=== PATIENT | female | born 1965 | race Caucasian/White ===

== ENCOUNTER 2021-10-04 07:50 | Inpatient (IN) | payer MEDICARE, OTHER ==
[~2021-10-04] VITALS: Ht 157.5 cm; Wt 48.5 kg
[~2021-10-04 07:50] MED LIST: SPIRIVA18 MCG INH
[2021-10-04] MEDS ORDERED: ASPIRIN81 MG PO (09:02)
[2021-10-04] MEDS ORDERED: BUTALB-ACETAMI1 EAC1 PO (09:02)
[2021-10-04] MEDS ORDERED: ATROVENT-HFA12.9 GM INH (09:03)
[2021-10-04] MEDS ORDERED: FAMOTIDINE20 MG PO (09:03)
[2021-10-04] MEDS ORDERED: LEVETIRACETAM500 MG PO (09:04)
[2021-10-04] MEDS ORDERED: FLOVENT 220.1 GM/INH INH (09:04)
[2021-10-04] MEDS ORDERED: MONTELUKAST SOD10 MG PO (09:05)
[2021-10-04] MEDS ORDERED: OMEPRAZOLE20 MG PO (09:05)
[2021-10-04 09:16] LABS: HEMOGLOBIN 12.7 gm/dl (12.3-15.3); RED BLOOD COUNT 4.32 M/UL (4.00-5.10); WHITE BLOOD COUNT 5.9 K/UL (4.5-11.0)
[2021-10-04 09:40] LABS: BUN/CREATININE RATIO 12 (0-10)
[2021-10-04] MEDS ORDERED: CYCLOBENZAPRINE10 MG PO (13:17)
[2021-10-04] MEDS ORDERED: ZOFRAN 4 MG TAB4 MG PO (13:17)
[2021-10-04] MEDS ORDERED: HYDROCODON-ACE1 EAC6 PO (13:17)
[2021-10-04] MEDS ORDERED: ASPIRIN EC81 MG PO (13:17)
[2021-10-04] MEDS ORDERED: PROAIR HFA8.5 GM INH (17:21)
[2021-10-04] MEDS ORDERED: CRESTOR10 MG PO (17:23)
[2021-10-05 07:05] LABS: HEMOGLOBIN 11.5 gm/dl (12.3-15.3); RED BLOOD COUNT 3.99 M/UL (4.00-5.10)
[2021-10-05 07:06] LABS: WHITE BLOOD COUNT 11.6 K/UL (4.5-11.0)
[2021-10-05 07:23] LABS: BUN/CREATININE RATIO 11 (0-10)
[2021-10-06 06:54] LABS: HEMOGLOBIN 10.2 gm/dl (12.3-15.3)
[2021-10-06 06:55] LABS: RED BLOOD COUNT 3.58 M/UL (4.00-5.10); WHITE BLOOD COUNT 8.2 K/UL (4.5-11.0)
[2021-10-06 07:50] LABS: BUN/CREATININE RATIO 11 (0-10)
[2021-10-07 07:48] LABS: HEMOGLOBIN 9.9 gm/dl (12.3-15.3); RED BLOOD COUNT 3.53 M/UL (4.00-5.10); WHITE BLOOD COUNT 6.8 K/UL (4.5-11.0)
[2021-10-07 08:31] LABS: BUN/CREATININE RATIO 9 (0-10)
[2021-10-08 06:40] LABS: HEMOGLOBIN 9.8 gm/dl (12.3-15.3); RED BLOOD COUNT 3.5 M/UL (4.00-5.10); WHITE BLOOD COUNT 5.9 K/UL (4.5-11.0)
[2021-10-08 07:11] LABS: BUN/CREATININE RATIO 7 (0-10)
[2021-10-08] MEDS ORDERED: OMNICEF 300 MG300 MG PO (09:03)
[2021-10-08] MEDS ORDERED: DOXYCYCLINE HY100 M2 PO (09:03)
[2021-10-08] MEDS ORDERED: MEDROL DOSEPAK 24 MG PO (09:03)
[2021-10-08] MEDS ORDERED: CARVEDILOL3.125 MG PO (09:03)
== END 2021-10-08 14:23 | disposition home or self-care (01) | DRG 493 ==
LOC: OR 07:50 → M/S 16:42 → OR 16:50 → M/S 10-08 14:23
PROVIDERS: Internal Medicine; ADMIT Orthopaedic Surgery
PROC: 0PSC04Z Reposition Right Humeral Head with Internal Fixation Device, Open Approach (ICD-10-PCS; 2021-10-04)
PROC: B24BZZZ Ultrasonography of Heart with Aorta (ICD-10-PCS; principal; 2021-10-08)
DX: S42.201A Unspecified fracture of upper end of right humerus, initial encounter for closed fracture (principal); J96.11 Chronic respiratory failure with hypoxia; J44.9 Chronic obstructive pulmonary disease, unspecified; K21.9 Gastro-esophageal reflux disease without esophagitis; I50.9 Heart failure, unspecified; W01.0XXA Fall on same level from slipping, tripping and stumbling without subsequent striking against object, initial encounter; M06.9 Rheumatoid arthritis, unspecified; Z96.641 Presence of right artificial hip joint; F17.200 Nicotine dependence, unspecified, uncomplicated; Z96.661 Presence of right artificial ankle joint; Z20.822 Contact with and (suspected) exposure to COVID-19; G43.909 Migraine, unspecified, not intractable, without status migrainosus; E78.5 Hyperlipidemia, unspecified; G40.909 Epilepsy, unspecified, not intractable, without status epilepticus; R00.0 Tachycardia, unspecified; M81.0 Age-related osteoporosis without current pathological fracture; Z96.611 Presence of right artificial shoulder joint; Z80.1 Family history of malignant neoplasm of trachea, bronchus and lung; Z90.49 Acquired absence of other specified parts of digestive tract; Z90.710 Acquired absence of both cervix and uterus; Z88.2 Allergy status to sulfonamides; Z88.5 Allergy status to narcotic agent; Z79.899 Other long term (current) drug therapy; Z79.82 Long term (current) use of aspirin; Z88.8 Allergy status to other drugs, medicaments and biological substances; Z98.890 Other specified postprocedural states; Z82.49 Family history of ischemic heart disease and other diseases of the circulatory system; Z99.81 Dependence on supplemental oxygen
CPT/HCPCS: ECHO; 36415; 36600; 71045; 71046; 73020; 73060; 76000; 80048; 82803; 84439; 84443; 85027; 85379; 86850; 86900; 86901; 93005; 93306; 94640; 94664; 94760; 97110-GP-CQ; 97116; 97116-GP-CQ; 97162; 97166; 97530; 97535; J0171; J0690; J0696; J1100; J1200; J1650; J1885; J2270; J2370; J2405; J2704; J2710; J2795; J3370; J7030; J7120; Q9967; U0002